=== PATIENT | male | born 1985 | race Caucasian/White ===

== ENCOUNTER 2017-03-16 17:39 | Emergency (ER) | payer OTHER ==
[2017-03-16 17:48] VITALS: RESP 16
[2017-03-16 19:18] LABS: % IMMATURE GRANULYOCYTES 0.3 % (0.0-1.1); ABSOLUTE IMMATURE GRANULOCYTES 0.02 10^3/uL (0.00-0.10); ADD DIFF? NO; ADD MORPH? NO; ADD SCAN? NO; ATYPICAL LYMPHOCYTE FLAG 0 (0-99); FRAGMENT RBC FLAG 0 (0-99); HEMATOCRIT 48.2 % (40.0-51.0); HEMOGLOBIN 16.7 g/dL (13.7-17.5); LEFT SHIFT FLG 10 (0-99); LIPEMIA HEMOLYSIS FLAG 90 (0-99); MEAN CELL HEMOGLOBIN 30.6 pg (27.9-34.1); MEAN CELL HEMOGLOBIN CONCENTR. 34.6 g/dL (32.4-36.7); MEAN CELL VOLUME 88.4 fL (81.5-99.8); MEAN PLATELET VOLUME 9.6 fL (8.7-11.7); PLATELET CLUMPS FLAG 0 (0-99); PLATELET COUNT 193 10^3/uL (150-400); RED BLOOD CELL COUNT 5.45 10^6/uL (4.40-6.38); RED CELL DISTRIBUTION WIDTH 13.1 % (11.5-15.2)
[2017-03-16 19:33] LABS: ALANINE AMINOTRANSFERASE 32 IU/L (21-72); ALBUMIN 4.4 g/dL (3.5-5.0); ALKALINE PHOSPHATASE 80 IU/L (38-126); ANION GAP 14 mEq/L (8-16); ASPARTATE AMINOTRANSFERASE 22 IU/L (17-59); BILIRUBIN,TOTAL 0.9 mg/dL (0.1-1.4); BILIRUBIN-CONJUGATED 0.4 mg/dL (0.0-0.5); BILIRUBIN-UNCONJUGATED 0.5 mg/dL (0.0-1.1); CALCIUM 9.7 mg/dL (8.5-10.4); CARBON DIOXIDE 20 mEq/l (22-31); CHLORIDE 111 mEq/L (97-110); CREATININE 1.3 mg/dL (0.7-1.3); GLOMERULAR FILTRATION RATE > 60; GLUCOSE 87 mg/dL (70-100); POTASSIUM 4.1 mEq/L (3.5-5.2); SODIUM 145 mEq/L (134-144); TOTAL PROTEIN 6.7 g/dL (6.3-8.2)
[2017-03-16] MEDS ORDERED: IOPAMIDOL (ISOVUE-300) 100 ML BTL ONE (19:57)
--- NOTE | 2017-03-16 21:37 | EDPHY ---
H & P Smoking Status: Never smoked Time Seen by Provider: 03/16/17 18:32 HPI/ROS: CHIEF COMPLAINT: Abdominal pain, vomiting HISTORY OF PRESENT ILLNESS: 31-year-old male presents to the emergency department with left-sided abdominal pain and vomiting that has been intermittent over last several weeks. Has no diarrhea. No fevers or chills. No chest pain or difficulty breathing. No reported trauma. No headache. Patient also was inquiring about HIV testing. He does have a primary care provider. REVIEW OF SYSTEMS: Constitutional: No fever, no chills. Eyes: No double or blurry vision. ENT: No sore throat. Respiratory: No cough, no shortness of breath. Cardiac: No chest pain. Gastrointestinal: Abdominal pain and vomiting as above. No diarrhea. Genitourinary: No dysuria. Musculoskeletal: No neck or back pain. Skin: No rashes. Neurological: No headache. (Nadira Barnett) Past Medical/Surgical History: Anoxic brain injury at with left-sided deficits (Nadira Barnett) Social History: Single (Nadira Barnett) Physical Exam: General Appearance: Alert, no distress. Afebrile. Eyes: Pupils equal and round. Extraocular motions are all intact. ENT: Mouth: Mucous membranes moist. Respiratory: No wheezing, rhonchi, or rales, lungs are clear to auscultation. Cardiovascular: Regular rate and rhythm. Gastrointestinal: Mild tenderness with palpation in the left lower quadrant. There is no rebound, guarding or masses noted. He has some mild right lower quadrant tenderness as well. No CVA tenderness bilaterally. Neurological: Alert and oriented x 3, cranial nerves II through XII grossly intact Skin: Warm and dry, no rashes. Musculoskeletal: Nontender to palpate along the cervical, thoracic or lumbar spine. Neck is supple. Extremities: Full range of motion with the exception of left hand held in flexion secondary to his deficits from previous anoxic brain injury. No peripheral edema. Psychiatric: Patient is oriented X 3, there is no agitation. (Nadira Barnett) Constitutional: Initial Vital Signs Temperature (C) 36.8 C 03/16/17 17:45 Heart Rate 94 03/16/17 17:45 Respiratory Rate 16 03/16/17 17:45 Blood Pressure 130/86 H 03/16/17 17:45 O2 Sat (%) 96 03/16/17 17:45 O2 Delivery Mode Room Air Allergies/Adverse Reactions: erythromycin base [Erythromycin Base] Allergy (Mild, Verified 12/03/15 05:15) Other-Enter Comments prednisone [Prednisone] Allergy (Mild, Verified 12/03/15 05:15) Other-Enter Comments Home Medications: Medication Instructions Recorded Gabapentin [Neurontin] 300 mg PO HS 10/21/10 Gabapentin [Neurontin] 400 mg PO DAILY 10/21/10 TOPIRAMATE [Topamax] 300 mg PO HS 10/21/10 lamoTRIgine [LamICTAL 100 MG (RX)] 100 mg PO DAILY 07/28/12 Ibuprofen [Motrin 800 mg (RX)] 800 mg PO TID PRN #20 tab 12/30/12 Metaxalone [Skelaxin] 800 mg PO 08/04/15 Medical Decision Making - Diagnostics Imaging: Discussed imaging studies w/ scallop binder Radiologist ED Course/Re-evaluation: 31-year-old male presents to the emergency department with abdominal pain and vomiting. Patient had normal laboratory studies. He continued to feel nauseous and was still having abdominal pain. I recommended CT imaging of the abdomen and pelvis. This was discussed with the patient including radiation exposure and the patient agreed. CT scan was unremarkable. No signs of diverticulitis. There was signs of diverticula. Normal appendix. Patient was reassured. She felt comfortable being discharged home. He is wondering if some of this is related to stress since his dad 1 month ago. Encouraged the patient have close follow-up with primary care provider to have HIV testing. He understands that this cannot be performed in the emergency department. Patient verbalized understanding and agreed. The patient does not have any penile discharge or dysuria. He did not want testing or treatment for gonorrhea or chlamydia. (Nadira Barnett) I did not see this patient while he was in the emergency department. However his care was discussed with the PA while the patient was in the department. I agree with treatment plan and management (Anmol Sue) Differential Diagnosis: Including but not limited to acute appendicitis, diverticulitis, GERD, peptic ulcer disease, cholecystitis, cholelithiasis, pancreatitis (Nadira Barnett) - Data Points Laboratory Results: Laboratory Results 03/16/17 19:00 03/16/17 19:00 Departure - Departure Disposition: Home, Routine, Self-Care Clinical Impression: GERD (gastroesophageal reflux disease) Qualifiers: Esophagitis presence: esophagitis presence not specified Qualified Code(s): K21.9 - Gastro-esophageal reflux disease without esophagitis Abdominal pain Qualifiers: Abdominal location: generalized Qualified Code(s): R10.84 - Generalized abdominal pain Condition: Good Instructions: Gastroesophageal Reflux Disease (ED), Acute Abdominal Pain (ED) Additional Instructions: Abdominal Pain: Return to the Emergency Department immediately for increasing pain, fever, vomiting, or if not completely better in 8-12 hours. For heartburn, you may try omeprazole, Pepcid or ranitidine as directed. Diet and activity as tolerated. You may try [id number] magnesium citrate to help relieve any symptoms of constipation. Referrals: Jairo Taylor MD [Primary Care Provider] - 1-2 days without fail
[2017-03-16 22:51] VITALS: BP 114/74; PULSE 77; TEMP 98.4; O2SAT 96
== END 2017-03-16 22:15 | disposition home or self-care (01) ==
DX: K21.9 Gastro-esophageal reflux disease without esophagitis (principal)
CPT/HCPCS: 74177; 99285; Q9967

== ENCOUNTER 2017-11-18 07:36 | Emergency (ER) | payer OTHER ==
[2017-11-18 07:42] VITALS: RESP 16; TEMP 97.3
--- NOTE | 2017-11-18 08:07 | EDPHY ---
H & P Time Seen by Provider: 11/18/17 07:49 HPI/ROS: Chief complaint. Hip pain HPI. 32-year-old male presents emergency department with 2 day history left hip and groin pain. It extends really into the anterior thigh which is where he shows me his pain is. There is no injury except that he has been walking a lot feels that this may be over use. There is no leg weakness. He does have a history of back surgery and back pain but he denies any low back pain. Increased pain anterior thigh with range of motion walking. No swelling. He had similar symptoms previously and ended up with a right hip replacement. He has no abdominal pain or vomiting or diarrhea. Maybe some urinary symptoms. Otherwise no fever, cough, chest pain, shortness of breath, bowel or bladder symptoms, leg weakness ROS Constitutional. no fever/chills, no weakness Eyes. no problems with vision ENT. no sore throat, no nasal drainage Cardiovascular. no chest pain Respiratory. no shortness of breath, no cough Abdominal. no abdominal pain, no nausea/vomiting, no diarrhea . no problems urinating MS. Left hip, groin, anterior thigh pain Skin. no rash Lymph. no swollen glands Neuro. no headache, no dizziness, no difficulty walking or with speech Past Medical/Surgical History: Cerebral palsy, hypertension, HNP, back surgery that was a L4-S1 fusion, anxiety , bipolar illness Social History: Single, nonsmoker, no alcohol Smoking Status: Never smoked Physical Exam: General Appearance: Alert well-developed male mild distress signs are stable Eyes: Pupils equal and round no pallor or injection. ENT, Mouth: Mucous membranes are moist. Respiratory: There are no retractions, lungs are clear to auscultation. Cardiovascular: Regular rate and rhythm. Gastrointestinal: Abdomen is soft and nontender, no masses, bowel sounds normal. Neurological: Awake and alert, sensory and motor exams grossly normal. Skin: Warm and dry, no rashes. Musculoskeletal: Neck is supple nontender. No lumbosacral discomfort Extremities symmetrical, full range of motion. No significant tenderness to the lateral hip. Mild tenderness to the left groin area and anterior thigh. No swelling or erythema. I stood the patient up and checked him for hernias I do not see this. Psychiatric: Patient is oriented X 3, there is no agitation. Constitutional: Initial Vital Signs Temperature (C) 36.3 C 11/18/17 07:40 Heart Rate 78 11/18/17 07:40 Respiratory Rate 16 11/18/17 07:40 Blood Pressure 127/74 H 11/18/17 07:40 O2 Sat (%) 98 11/18/17 07:40 O2 Delivery Mode Room Air Allergies/Adverse Reactions: erythromycin base [Erythromycin Base] Allergy (Mild, Verified 12/03/15 05:15) Other-Enter Comments prednisone [Prednisone] Allergy (Mild, Verified 12/03/15 05:15) Other-Enter Comments Home Medications: Medication Instructions Recorded Gabapentin [Neurontin] 300 mg PO HS 10/21/10 Gabapentin [Neurontin] 400 mg PO DAILY 10/21/10 TOPIRAMATE [Topamax] 300 mg PO HS 10/21/10 lamoTRIgine [LamICTAL 100 MG (RX)] 100 mg PO DAILY 07/28/12 Ibuprofen [Motrin 800 mg (RX)] 800 mg PO TID PRN #20 tab 12/30/12 Metaxalone [Skelaxin] 800 mg PO 08/04/15 Medical Decision Making - Diagnostics Imaging Results: Imaging Impressions Hip X-Ray 11/18/17 08:24 Impression: 1. Loosening of bilateral sacral screws associated with a posterior fusion construct. 2. Suspect left femoroacetabular impingement. 3. No acute fracture. Findings discussed with emergency department physician, Anmol Sue MD on November 18, 2017 at 9:04 a.m. Left hip x-ray reviewed by me and discussed with Dr. Miner shows is consistent with left acetabular impingement syndrome. It is also noted that the pedicle screws at S1 appear to be loosening especially on the left. Patient 's hip prosthesis on the right appears normal. Procedures: Urinalysis is normal ED Course/Re-evaluation: Re-evaluation at 9:10 a.m. And patient and I discussed laboratory and imaging study results. We discussed treatment plan including criteria for return importance of follow-up and further evaluation. He expresses understanding and agreement Differential Diagnosis: Infection, kidney stone, hernia. It appears that this is coming from left hip with a acetabular impingement syndrome. It also appears there is an incidental finding of screws loosening in his S1 fusion. He however is not tender here and I do not think that this is nicely contributing to his discomfort. This is likely more overuse syndrome. There is no evidence for bowel or bladder symptoms. - Data Points Laboratory Results: 11/18/17 08:20 Urine Color YELLOW Urine Appearance CLEAR Urine pH 7.0 (5.0-7.5) Ur Specific [place] 1.001 L (1.002-1.030) Urine Protein NEGATIVE (NEGATIVE) Urine Ketones NEGATIVE (NEGATIVE) Urine Blood NEGATIVE (NEGATIVE) Urine Nitrate NEGATIVE (NEGATIVE) Urine Bilirubin NEGATIVE (NEGATIVE) Urine Urobilinogen NEGATIVE EU EU (0.2-1.0) Ur Leukocyte Esterase NEGATIVE (NEGATIVE) Urine RBC 1-3 /hpf /hpf (0-3) Urine WBC 1-3 /hpf /hpf (0-3) Ur Epithelial Cells NONE SEEN /lpf /lpf (NONE-1+) Urine Glucose NEGATIVE (NEGATIVE) Departure - Departure Disposition: Home, Routine, Self-Care Clinical Impression: Hip pain, left Condition: Good Instructions: Hip Pain (ED) Additional Instructions: Continue regular medications including the ibuprofen. Decreased your activity including walking over the next 2 days if possible. It appears that you have an acetabular impingement syndrome and I will give you the name of Dr. Thomas stuart and, orthopedist. It does appear that the screw in 1st sacral vertebra on the left may be loosening on the x-ray today. Please follow-up with your neurosurgeon and I will also give you the name of neurosurgeon here in [place] necessary. Return for worsening symptoms. Recheck in 2 days if not improved Referrals: Jairo Taylor MD [Primary Care Provider] - 2-3 days, if not improved [place] Flaherty MD [Medical Doctor] - 5-7 days, if not improved Cathy Hollingsworth DO [Doctor of Osteopathy] - As per Instructions
[2017-11-18 09:27] VITALS: BP 132/85; PULSE 75; O2SAT 96
== END 2017-11-18 09:27 | disposition home or self-care (01) ==
DX: M25.552 Pain in left hip (principal); I10 Essential (primary) hypertension